=== PATIENT | male | born 1965 | race Caucasian/White ===

== ENCOUNTER → 2023-01-09 | Outpatient (CLI) | payer MEDICARE, BC ==
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
== END ==
LOC: RAD 14:52
PROVIDERS: ATTEND Registered Nurse Critical Care Medicine
DX: M19.012 Primary osteoarthritis, left shoulder (principal); S12.19 Other fracture of second cervical vertebra; S42.92XS Fracture of left shoulder girdle, part unspecified, sequela; X58.XXXS Exposure to other specified factors, sequela
CPT/HCPCS: 71046; 72040; 73030; 73090; 73110